=== PATIENT | male | born 1965 | race Caucasian/White ===

== ENCOUNTER 2016-08-07 23:03 | Emergency (ER) | payer OTHER ==
[~2016-08-07] VITALS: Ht 175.2 cm; Wt 72.6 kg
[~2016-08-07 23:03] MED LIST: 'PARAFON FORTE500 M1 PO; ASACOL400 MG PO; CIPRO500 MG PO; CORDROL20 MG PO; DELTASONE20 MG PO; DELZICOL400 M1 PO; DEPRESSION MED; DIFLUCAN100 MG PO; FEMIRON20 MG PO; FERRACTIV IRON1 EACH PO; FLAGYL500 MG PO; LEVAQUIN750 MG PO; LEVOFLOXACIN500 MG PO; MIRALAX POWDER17 G1 PO; Mycostatin Powd15 GM PO; NAPROSYN500 MG PO; NEXIUM10 MG/PACK PO; NEXIUM20 MG PO; NEXIUM40 MG PO; PHENERGAN W/DM120 ML PO; PHENERGAN12.5 M1 PO; PREDNICOT10 MG PO; PREDNICOT20 MG PO; PREDNISOLONE5 MG PO; PREDNISONE10 MG PO; PREDNISONE20 M1 PO; PREDNISONE20 MG PO; PREDNISONE5 MG PO; PRILOSEC20 M2 PO; PROTONIX TR40 M1 PO; PROTONIX40 MG PO; SEROQUEL400 M1 PO; SEROQUEL400 MG PO; TRAMADOL HCL50 MG PO; ULTRAM50 MG PO; VIBRAMYCIN100 MG PO; VICODIN 5/500 505 MG PO; VITAMIN D PO; XANAX0.25 MG PO; ZANTAC 150150 MG PO; ZOFRAN4 MG PO; [UNRECOGNIZED DRUG - REMARK]
[2016-08-07] MEDS ORDERED: ROBITUSSIN DM 105 ML PO (23:58)
[2016-08-07] MEDS ORDERED: FLONASE ALLERG9.9 ML NAS (23:58)
[2016-08-07] MEDS ORDERED: CLARITIN10 MG PO (23:58)
== END 2016-08-08 00:16 | disposition left against medical advice (07) ==
LOC: ED 23:03
DX: B34.9 Viral infection, unspecified (principal); R03.0 Elevated blood-pressure reading, without diagnosis of hypertension; F17.200 Nicotine dependence, unspecified, uncomplicated

== ENCOUNTER 2016-08-16 06:04 | Emergency (ER) | payer OTHER ==
[~2016-08-16] VITALS: Ht 175.2 cm; Wt 72.6 kg
[~2016-08-16 06:04] MED LIST changes: +CLARITIN10 MG PO; +FLONASE ALLERG9.9 ML NAS; +ROBITUSSIN DM 105 ML PO
[2016-08-16] MEDS ORDERED: PREDNISONE10 MG PO (06:45)
[2016-08-16] MEDS ORDERED: ZITHROMAX250 MG PO (06:45)
[2016-08-16] MEDS ORDERED: PROAIR HFA8.5 GM INH (06:45)
== END 2016-08-16 07:07 | disposition home or self-care (01) ==
LOC: ED 06:04
DX: J40 Bronchitis, not specified as acute or chronic (principal); R09.1 Pleurisy; F17.200 Nicotine dependence, unspecified, uncomplicated; Z79.899 Other long term (current) drug therapy

== ENCOUNTER 2016-10-01 04:48 | Emergency (ER) | payer OTHER ==
[~2016-10-01] VITALS: Ht 175.2 cm; Wt 72.6 kg
[~2016-10-01 04:48] MED LIST changes: +PROAIR HFA8.5 GM INH; +ZITHROMAX250 MG PO
[2016-10-01] MEDS ORDERED: SEROQUEL400 M1 PO (05:04)
[2016-10-01] MEDS ORDERED: PREDNISONE10 M1 PO (05:04)
== END 2016-10-01 05:15 | disposition home or self-care (01) ==
LOC: ED 04:48
DX: K50.919 Crohn's disease, unspecified, with unspecified complications (principal); Z79.899 Other long term (current) drug therapy

== ENCOUNTER 2016-12-20 20:57 | Emergency (ER) | payer OTHER ==
[~2016-12-20] VITALS: Ht 175.2 cm; Wt 72.6 kg
[~2016-12-20 20:57] MED LIST changes: +PREDNISONE10 M1 PO
[2016-12-20] MEDS ORDERED: NEXIUM10 MG/PACK PO (21:03)
[2016-12-20] MEDS ORDERED: PREDNISONE10 MG PO (21:23)
[2016-12-20] MEDS ORDERED: SEROQUEL400 M1 PO (21:23)
== END 2016-12-20 22:18 | disposition home or self-care (01) ==
LOC: ED 20:57
DX: Z76.0 Encounter for issue of repeat prescription (principal); K50.90 Crohn's disease, unspecified, without complications; F17.200 Nicotine dependence, unspecified, uncomplicated; Z79.899 Other long term (current) drug therapy

== ENCOUNTER 2017-01-26 08:24 | Emergency (ER) | payer OTHER ==
[~2017-01-26] VITALS: Ht 175.2 cm; Wt 72.6 kg
[2017-01-26] MEDS ORDERED: LIALDA1.2 GM PO (08:57)
== END 2017-01-26 10:09 | disposition home or self-care (01) ==
LOC: ED 08:24
DX: K50.90 Crohn's disease, unspecified, without complications (principal); Z79.899 Other long term (current) drug therapy

== ENCOUNTER 2017-08-28 07:07 | Emergency (ER) | payer OTHER ==
[~2017-08-28] VITALS: Ht 175.2 cm; Wt 81.6 kg
[~2017-08-28 07:07] MED LIST changes: +LIALDA1.2 GM PO
[2017-08-28] MEDS ORDERED: SEROQUEL100 MG PO (07:12)
[2017-08-28 07:54] LABS: BILIRUBIN NEGATIVE (NEGATIVE); BLOOD NEGATIVE (NEGATIVE); CLARITY CLEAR (CLEAR); COLOR YELLOW (YELLOW); GLUCOSE NEGATIVE (NEGATIVE); KETONE NEGATIVE (NEGATIVE); LEUKO ESTERASE NEGATIVE (NEGATIVE); NITRITE NEGATIVE (NEGATIVE); PH 5.5 (5.0-9.0); SPECIFIC GRAVITY 1.025 (1.005-1.030); UROBILINOGEN 0.2 E.U./dl (0.2-1.0)
[2017-08-28 08:01] LABS: BASO # 0.1 10*3/uL (0.0-0.1); BASO % 0.4 % (0.0-1.0); EOS # 0.3 10*3/uL (0.0-0.4); EOS % 2.5 % (1.0-4.0); HEMATOCRIT 42.6 % (42.0-52.0); HEMOGLOBIN 14.4 g/dl (14.0-18.0); LYMPH # 1.9 10*3/uL (1.3-4.4); LYMPH % 16.4 % (27.0-41.0); MEAN CELL VOLUME 94.7 fl (80.0-94.0); MEAN CORPUSCULAR HGB CONC 33.8 g/dl (33.0-37.0); MEAN PLATELET VOLUME 9.5 fl (9.6-12.3); MONO # 0.8 10*3/uL (0.1-1.0); MONO % 6.8 % (3.0-9.0); NEUT # 8.3 10*3/uL (2.3-7.9); NEUT % 73.2 % (47.0-73.0); PLATELET COUNT AUTOMATED 533 10*3/uL (130-400); RED CELL DISTRI WIDTH 12.5 % (0-14.5); WHITE BLOOD COUNT 11.3 10*3/uL (4.8-10.8)
[2017-08-28 08:10] LABS: RBC 0-2 rbc/hpf (0-2); WBC 0-2 wbc/hpf (0-5)
[2017-08-28 08:20] LABS: ALBUMIN 3.7 gm/dl (3.1-4.5); ALKALINE PHOSPHATASE 67 U/L (45-117); BUN 11 mg/dl (7-24); CHLORIDE 109 mmol/L (98-107); CREATININE 0.79 mg/dL (0.70-1.30); LIPASE 105 U/L (73-393); SGOT/AST 20 IU/L (3-35); SGPT/ALT 37 U/L (12-78); SODIUM 140 mmol/L (136-145); TOTAL PROTEIN 7.5 gm/dL (6.4-8.2)
[2017-08-28] MEDS ORDERED: PREDNISONE10 MG PO (09:24)
== END 2017-08-28 09:26 | disposition home or self-care (01) ==
LOC: ED 07:07
PROVIDERS: Emergency Medicine
DX: R19.7 Diarrhea, unspecified (principal); K50.919 Crohn's disease, unspecified, with unspecified complications; F17.210 Nicotine dependence, cigarettes, uncomplicated; Z79.899 Other long term (current) drug therapy

== ENCOUNTER 2017-10-11 14:14 | Emergency (ER) | payer OTHER ==
[~2017-10-11] VITALS: Ht 175.2 cm; Wt 77.1 kg
[~2017-10-11 14:14] MED LIST changes: +SEROQUEL100 MG PO
[2017-10-11 14:44] LABS: BASO # 0.1 10*3/uL (0.0-0.1); BASO % 0.5 % (0.0-1.0); EOS # 0.3 10*3/uL (0.0-0.4); EOS % 2.2 % (1.0-4.0); HEMATOCRIT 40.3 % (42.0-52.0); HEMOGLOBIN 13.3 g/dl (14.0-18.0); LYMPH # 1.9 10*3/uL (1.3-4.4); LYMPH % 14.8 % (27.0-41.0); MEAN CELL VOLUME 94.6 fl (80.0-94.0); MEAN CORPUSCULAR HGB 31.2 pg (27.0-31.0); MONO # 1.1 10*3/uL (0.1-1.0); MONO % 8.9 % (3.0-9.0); NEUT # 9.2 10*3/uL (2.3-7.9); NEUT % 73.2 % (47.0-73.0); PLATELET COUNT AUTOMATED 463 10*3/uL (130-400); RED BLOOD COUNT 4.26 10*6/uL (4.50-5.90); RED CELL DISTRI WIDTH 12.2 % (0-14.5); WHITE BLOOD COUNT 12.6 10*3/uL (4.8-10.8)
[2017-10-11 14:59] LABS: ALBUMIN 3.5 gm/dl (3.1-4.5); ALKALINE PHOSPHATASE 70 U/L (45-117); BUN 6 mg/dl (7-24); CHLORIDE 107 mmol/L (98-107); CREATININE 0.84 mg/dL (0.70-1.30); LIPASE 101 U/L (73-393); POTASSIUM 3.9 mmol/L (3.5-5.1); SGOT/AST 15 IU/L (3-35); SGPT/ALT 22 U/L (12-78); SODIUM 140 mmol/L (136-145); TOTAL PROTEIN 7.1 gm/dL (6.4-8.2)
[2017-10-11 16:04] LABS: BILIRUBIN NEGATIVE (NEGATIVE); BLOOD NEGATIVE (NEGATIVE); CLARITY CLEAR (CLEAR); COLOR YELLOW (YELLOW); GLUCOSE NEGATIVE (NEGATIVE); KETONE NEGATIVE (NEGATIVE); LEUKO ESTERASE NEGATIVE (NEGATIVE); NITRITE NEGATIVE (NEGATIVE); SPECIFIC GRAVITY >= 1.030 (1.005-1.030); UROBILINOGEN 0.2 E.U./dl (0.2-1.0)
[2017-10-11 16:16] LABS: BACTERIA TRACE; WBC 0-2 wbc/hpf (0-5)
[2017-10-11] MEDS ORDERED: DELTASONE20 M1 PO (17:24)
[2017-10-11] MEDS ORDERED: ULTRAM50 MG PO (17:50)
[2017-10-11] MEDS ORDERED: CYCLOBENZAPRINE5 M3 PO (17:50)
[2017-10-11] MEDS ORDERED: MILLIPRED5 MG PO (17:50)
== END 2017-10-11 18:00 | disposition home or self-care (01) ==
LOC: ED 14:14
PROVIDERS: Physician Assistant
DX: M54.6 Pain in thoracic spine (principal); R10.10 Upper abdominal pain, unspecified; Z79.899 Other long term (current) drug therapy

== ENCOUNTER 2017-11-04 13:48 | Emergency (ER) | payer OTHER ==
[~2017-11-04] VITALS: Ht 172.7 cm; Wt 68.0 kg
[~2017-11-04 13:48] MED LIST changes: +CYCLOBENZAPRINE5 M3 PO; +DELTASONE20 M1 PO; +MILLIPRED5 MG PO
[2017-11-04 14:07] LABS: BASO # 0.1 10*3/uL (0.0-0.1); BASO % 0.6 % (0.0-1.0); EOS # 0.2 10*3/uL (0.0-0.4); EOS % 1.4 % (1.0-4.0); HEMATOCRIT 46.6 % (42.0-52.0); HEMOGLOBIN 14.9 g/dl (14.0-18.0); LYMPH # 1.6 10*3/uL (1.3-4.4); LYMPH % 11.2 % (27.0-41.0); MEAN CELL VOLUME 95.3 fl (80.0-94.0); MEAN CORPUSCULAR HGB 30.5 pg (27.0-31.0); MEAN PLATELET VOLUME 9.8 fl (9.6-12.3); MONO % 7.3 % (3.0-9.0); NEUT # 11.3 10*3/uL (2.3-7.9); NEUT % 79.1 % (47.0-73.0); PLATELET COUNT AUTOMATED 493 10*3/uL (130-400); RED BLOOD COUNT 4.89 10*6/uL (4.50-5.90); RED CELL DISTRI WIDTH 12.3 % (0-14.5); WHITE BLOOD COUNT 14.3 10*3/uL (4.8-10.8)
[2017-11-04 14:18] LABS: BUN 15 mg/dl (7-24); CHLORIDE 106 mmol/L (98-107); CREATININE 1.08 mg/dL (0.70-1.30); POTASSIUM 3.6 mmol/L (3.5-5.1); SODIUM 138 mmol/L (136-145)
[2017-11-04 14:40] LABS: BILIRUBIN 1+ (NEGATIVE); BLOOD NEGATIVE (NEGATIVE); CLARITY SL CLOUDY (CLEAR); COLOR YELLOW (YELLOW); GLUCOSE NEGATIVE (NEGATIVE); KETONE TRACE (NEGATIVE); LEUKO ESTERASE NEGATIVE (NEGATIVE); NITRITE NEGATIVE (NEGATIVE); PH 5.5 (5.0-9.0); SPECIFIC GRAVITY >= 1.030 (1.005-1.030)
[2017-11-04 14:51] LABS: MUCOUS 2+
[2017-11-04 14:52] LABS: BACTERIA 1+
[2017-11-04] MEDS ORDERED: CYCLOBENZAPRINE10 MG PO (15:01)
== END 2017-11-04 14:52 | disposition home or self-care (01) ==
LOC: ED 13:48
PROVIDERS: Emergency Medicine
DX: M54.5 Low back pain (principal); Z79.899 Other long term (current) drug therapy

== ENCOUNTER 2018-06-04 12:27 | Emergency (ER) | payer OTHER ==
[~2018-06-04] VITALS: Ht 175.2 cm; Wt 81.6 kg
[~2018-06-04 12:27] MED LIST changes: +ASACOL HD800 M1 PO; +CYCLOBENZAPRINE10 MG PO; +DEPAKOTE500 MG PO; +QUETIAPINE FUM400 M1 PO; +SEROPHENE50 MG PO; +SEROQUEL25 MG PO; +SEROQUEL50 MG PO
== END 2018-06-04 13:21 | disposition home or self-care (01) ==
LOC: ED 12:27
DX: J06.9 Acute upper respiratory infection, unspecified (principal); M79.601 Pain in right arm; R61 Generalized hyperhidrosis

== ENCOUNTER 2018-07-02 18:04 | Emergency (ER) | payer OTHER ==
[2018-07-02] MEDS ORDERED: PREDNISONE5 MG PO (18:06)
[2018-07-02] MEDS ORDERED: ANAPROX DS550 MG PO (19:04)
== END 2018-07-02 19:45 | disposition home or self-care (01) ==
LOC: ED 18:04
DX: M75.31 Calcific tendinitis of right shoulder (principal); F17.200 Nicotine dependence, unspecified, uncomplicated; Z79.899 Other long term (current) drug therapy

== ENCOUNTER 2022-04-27 13:49 | Emergency (ER) | payer OTHER ==
[~2022-04-27] VITALS: Ht 175.2 cm; Wt 81.6 kg
[~2022-04-27 13:49] MED LIST changes: +ANAPROX DS550 MG PO
[2022-04-27 15:22] LABS: BASO % 0.4 % (0.0-1.0); EOS # 0.2 10*3/uL (0.0-0.4); EOS % 1.5 % (1.0-4.0); LYMPH # 1.8 10*3/uL (1.3-4.4); LYMPH % 16.3 % (27.0-41.0); MEAN CELL VOLUME 92.7 fl (80.0-94.0); MEAN CORPUSCULAR HGB CONC 32.3 g/dl (33.0-37.0); MEAN PLATELET VOLUME 9.5 fl (9.6-12.3); MONO # 0.8 10*3/uL (0.1-1.0); MONO % 7.5 % (3.0-9.0); NEUT # 8.3 10*3/uL (2.3-7.9); NEUT % 73.9 % (47.0-73.0); PLATELET COUNT AUTOMATED 583 10*3/uL (130-400); RED BLOOD COUNT 4.64 10*6/uL (4.50-5.90); RED CELL DISTRI WIDTH 12.7 % (0-14.5); WHITE BLOOD COUNT 11.3 10*3/uL (4.8-10.8)
[2022-04-27 15:45] LABS: ALKALINE PHOSPHATASE 74 U/L (46-116); BUN 10 mg/dl (9-23); CHLORIDE 107 mmol/L (98-107); CREATININE 0.65 mg/dL (0.70-1.30); POTASSIUM 3.3 mmol/L (3.4-5.1); SGPT/ALT 24 U/L (10-49); SODIUM 140 mmol/L (136-145); TOTAL PROTEIN 6.8 gm/dL (6.0-8.0)
== END 2022-04-27 16:55 | disposition home or self-care (01) ==
LOC: ED 13:49
PROVIDERS: Nurse Practitioner Family
DX: B34.9 Viral infection, unspecified (principal); Z20.822 Contact with and (suspected) exposure to COVID-19